=== PATIENT | male | born 1960 | race Caucasian/White ===

== ENCOUNTER 2021-06-04 12:30 | Observation (INO) | payer SELFPAY ==
[2021-06-04 12:40] VITALS: BMI 28.8
[2021-06-04 13:30] LABS: BASO % 0.4 % (0-2.0); EOS % 2.9 % (0-4.5); HEMATOCRIT 44.7 % (35.4-49); HEMOGLOBIN 15.1 GM/dL (11.7-16.9); LYMPH % 36.3 % (8-40); MCH 30.5 pg (25.7-33.7); MCHC 33.7 g/dl (32.0-35.9); MEAN CELL VOLUME 90.4 fl (80-96); MONO % 6.8 % (3.8-10.2); NEUT % 53.6 % (42.8-82.8); PLATELET COUNT 261 10^3/uL (134-434); RBC 4.94 M/mm3 (4.00-5.60); RDW 14.4 % (11.9-15.9); WHITE BLOOD COUNT 7.8 K/mm3 (4.0-10.0)
[2021-06-04 13:36] LABS: PROTHROMBIN TIME (PATIENT) 11.2 SEC (9.7-13.0)
[2021-06-04 13:39] LABS: ACTIVATED PTT 26.3 SECONDS (25.2-36.5)
[2021-06-04 13:55] LABS: CHLORIDE 107 mmol/L (98-107); SODIUM 141 mmol/L (136-145)
[2021-06-04 14:00] LABS: ALBUMIN 3.9 g/dl (3.4-5.0); CALCIUM 9.9 mg/dL (8.5-10.1); GLUCOSE,RANDOM 92 mg/dL (74-106)
[2021-06-04 14:01] LABS: ANION GAP 7 MMOL/L (8-16); CO2 27 mmol/L (21-32)
[2021-06-04 14:02] LABS: BLOOD UREA NITROGEN 12.8 mg/dL (7-18)
[2021-06-04 14:03] LABS: SGOT/AST 24 U/L (15-37); SGPT/ALT 46 U/L (13-61)
[2021-06-04 14:04] LABS: CHOLESTEROL 173 mg/dL (50-200); TRIGLYCERIDES 176 mg/dL (0-150)
[2021-06-04 14:05] LABS: BILIRUBIN,TOTAL 0.3 mg/dL (0.2-1); LDL CHOLESTEROL (ONLY SJRH) 101 mg/dL (5-100); TOT PROT 7.3 g/dl (6.4-8.2)
[2021-06-04 14:06] LABS: ALK PHOS 92 U/L (45-117); HDL CHOLESTEROL 40 mg/dL (40-60)
[2021-06-04] MEDS ORDERED: ASPIRIN 81 MG CHEWABLE TABLETS PO ONE (21:40)
[2021-06-04] MEDS ORDERED: MECLIZINE HCL 12.5 MG TABLET PO PRN (21:41)
[2021-06-04] MEDS ORDERED: ATORVASTATIN CA 20 MG TABLET (FP) ONE (21:51)
[2021-06-04] MEDS ORDERED: ASPIRIN 81 MG CHEWABLE TABLETS ONE (21:51)
[2021-06-04] MEDS ORDERED: ATORVASTATIN CA 40 MG TABLET (FP) PO SCH (22:00)
[2021-06-05 07:32] LABS: BASO % 0.5 % (0-2.0); EOS % 4.3 % (0-4.5); HEMATOCRIT 45.2 % (35.4-49); LYMPH % 34.5 % (8-40); MCH 30.5 pg (25.7-33.7); MCHC 33.2 g/dl (32.0-35.9); MEAN CELL VOLUME 91.9 fl (80-96); MONO % 6.7 % (3.8-10.2); PLATELET COUNT 264 10^3/uL (134-434); RBC 4.92 M/mm3 (4.00-5.60); RDW 14.1 % (11.9-15.9); WHITE BLOOD COUNT 7.7 K/mm3 (4.0-10.0)
[2021-06-05 07:56] LABS: CALCIUM 9.3 mg/dL (8.5-10.1)
[2021-06-05 07:57] LABS: ALBUMIN 3.6 g/dl (3.4-5.0)
[2021-06-05 08:00] LABS: BLOOD UREA NITROGEN 17.3 mg/dL (7-18); MAGNESIUM 2.1 mg/dL (1.8-2.4); PHOSPHOROUS 3.3 mg/dL (2.5-4.9)
[2021-06-05 08:01] LABS: BILIRUBIN,TOTAL 0.4 mg/dL (0.2-1); TOT PROT 6.6 g/dl (6.4-8.2)
[2021-06-05 08:03] LABS: CREATININE 1.1 mg/dL (0.55-1.3)
[2021-06-05] MEDS ORDERED: ASPIRIN 81 MG CHEWABLE TABLETS PO SCH (10:00)
[2021-06-05] MEDS ORDERED: ENOXAPARIN NA (PORCINE) 40 MG/0.4 ML DISP.SYRIN SQ SCH (10:00)
[2021-06-05] MEDS ORDERED: LISINOPRIL 10 MG TABLET PO SCH (10:00)
[2021-06-05] MEDS ORDERED: ASPIRIN 81 MG CHEWABLE TABLETS ONE (10:23)
[2021-06-05] MEDS ORDERED: ENOXAPARIN NA (PORCINE) 40 MG/0.4 ML DISP.SYRIN SQ ONE (10:23)
[2021-06-05 14:08] VITALS: BP 124/88; PULSE 77; TEMP 99.1
== END 2021-06-05 17:28 | disposition home or self-care (01) ==
LOC: JER 12:30 → INTOOBSV 13:23 → UNDOADMOB 13:23 → JERBED 13:23
PROVIDERS: ATTEND Internal Medicine
PROC: 3E023GC Introduction of Other Therapeutic Substance into Muscle, Percutaneous Approach (ICD-10-PCS; principal; 2021-06-04)
DX: G45.9 Transient cerebral ischemic attack, unspecified (principal); R42 Dizziness and giddiness; I10 Essential (primary) hypertension; E78.5 Hyperlipidemia, unspecified; R73.03 Prediabetes; Z29.9 Encounter for prophylactic measures, unspecified
CPT/HCPCS: 36415; 70450-TC; 80053; 80061; 82550; 82607; 82962; 83036; 83735; 84100; 84484; 85025; 85610; 85730; 86850; 86900; 86901; 93005; 93010; 93880-TC; 99285-25; C9803; G0378; U0003; U0005